=== PATIENT | female | born 1965 | race African-American/Black ===

== ENCOUNTER 2019-07-30 06:14 | Day surgery (SDC) | payer BC, OTHER ==
[2019-07-28 16:55] VITALS: BMI 23.6
[2019-07-30] MEDS ORDERED: MIDAZOLAM HCL 2 MG/2 ML SINGLE DOSE VIAL ONE ×3 (07:24→07:37)
[2019-07-30] MEDS ORDERED: ROPIVACAINE HCL 0.5% 30ML VIAL ONE (07:25)
[2019-07-30] MEDS ORDERED: SCOPOLAMINE HYDROBROMIDE 1 PATCH PATCH.TD72 ONE (07:35)
[2019-07-30] MEDS ORDERED: PROPOFOL 20 ML ONE ×4 (07:38)
[2019-07-30] MEDS ORDERED: ROCURONIUM BROMIDE 50 MG/5 ML SYRINGE ONE (08:12)
[2019-07-30] MEDS ORDERED: SUCCINYLCHOLINE CHLORIDE 200 MG/10 ML SYRINGE ONE (08:13)
[2019-07-30] MEDS ORDERED: ceFAZolin SODIUM 1 GM VIAL IVPB ONE (08:20)
--- NOTE | 2019-07-30 09:16 | OP ---
Operative Note - Note: Operative Date: 07/30/19 Pre-Operative Diagnosis: right shoulder impingement, ACJ OA Operation: right shoulder arthroscopy, subacromial decompression, distal clavicle excision, removal loose body (from AC joint) Post-Operative Diagnosis: Same as Pre-op Surgeon: Satnam Pavon Botany Teacher: Keyon Robertson Anesthesiologist/BARBER SHOP MANAGER: Cele Brown Anesthesia: General, Local Specimens Removed: shavings, loose body Estimated Blood Loss (mls): 25 Drains, Volume Out (mls): 0 Blood Volume Replaced (mls): 0 Fluid Volume Replaced (mls): 500 Operative Report Dictated: Yes
[2019-07-30] MEDS ORDERED: ONDANSETRON 4 MG/2 ML VIAL IVPUSH PRN (09:57)
[2019-07-30] MEDS ORDERED: oxyCODONE HCL 5 MG TABLET PO PRN ×2 (09:57)
[2019-07-30] MEDS ORDERED: LACTATED RINGERS SOLUTION 1,000 ML IV SCH (10:00)
[2019-07-30] MEDS ORDERED: EPHEDRINE SULFATE/0.9% NACL/PF 50 MG/10 ML SYRINGE NR ONE (10:40)
[2019-07-30 11:05] VITALS: TEMP 97.2
--- NOTE | 2019-07-30 11:07 | HP ---
[facility] - Chief Complaint Chief Complaint: right shoulder pain - Past Medical History Allergies/Adverse Reactions: Allergies Allergy/AdvReac Type Severity Reaction Status Date / Time ragweed pollen Allergy Verified 07/30/19 06:50 ...LMP: 05/22/19 - Current Medications Current Medications: Home Medications Medication Instructions Recorded Nitrofurantoin Macrocrystal 100 mg PO DAILY 07/28/19 [Nitrofurantoin] Satellite Physical Exam - Physical Examination Vital Signs: Vital Signs Period Temp Pulse Resp BP Sys/Watson Pulse Ox Last 24 Hr 97.2 F-97.8 F 63-86 16-19 107-121/76-88 96-100 General Appearance: Well Nourished, Well Developed, Alert & Oriented x3 ENT: Clear Lung: Normal air movement Heart: Regular rate & rhythm Extremities: Other (right shoulder- + ttp, dec rom, + neer, + mann, nvi) Neurological: Intact, Alert, Oriented Satellite Impression/Plan - Impression/Plan Impression: right shoulder impingement Operative Procedure: right shoulder arthroscopy with SAD Date to be Performed: 07/30/19
[2019-07-30 13:26] VITALS: BP 113/76; PULSE 74
--- NOTE | 2019-07-30 23:33 | OP ---
DATE OF OPERATION: 07/30/2019 PREOPERATIVE DIAGNOSIS: Right shoulder impingement syndrome and acromioclavicular joint arthritis. POSTOPERATIVE DIAGNOSIS: Right shoulder impingement syndrome and acromioclavicular joint arthritis. Plus loose body in acromioclavicular joint, likely calcified meniscus. PROCEDURE: Right shoulder arthroscopy, subacromial decompression, distal clavicle excision, and removal of loose body (from acromioclavicular joint). ATTENDING SURGEON: Satnam Pavon M.D. COMMUNITY RECREATION PROGRAMMER: Daniel Galeana M.D., BARN MANAGER: GABE Hills ANESTHESIA: Right interscalene block with LMA anesthesia. DRAINS: None. COMPLICATIONS: None. SPECIMENS: Shavings of loose body right shoulder. BLOOD LOSS: 45 mL. BLOOD GIVEN: None. FLUID REPLACEMENT: 500 mL Plasmalyte. INDICATION: This patient is 54-year-old female with the preoperative diagnosis of right shoulder pain, subacromial impingement and ischial arthritis. After understanding the potential risks, complications, alternatives, benefits to surgery versus nonsurgical treatment, the patient elected to undergo this procedure. The patient was brought to the operating room. DESCRIPTION OF PROCEDURE; The patient was brought to the operating room, peripheral IV placed, IV sedation given, 2 g of IV Ancef was given. A right interscalene block was performed. LMA anesthesia was induced. She was placed into the beach chair position with ample padding throughout. The right upper extremity was prepped and draped in sterile fashion. The bony landmarks are marked out with a marking pen. The posterior portal was established with a number 15 scalpel blade. The arthroscope was introduced into the glenohumeral joint, and a diagnostic glenohumeral arthroscopy was performed. Patient had no arthritis of the humeral head or the glenoid. The labrum and the biceps anchor was a little frayed, looked like a degenerative type tear. There was no herminio acute tear. The undersurface of the rotator cuff looked pristine. There was no abnormality or partial tear. The area was copiously irrigated and washed out. Next our attention turned to the subacromial space. There was a lot of inflammatory bursitis. Using a spinal needle under direct visualization, a lateral portal was found. cannula was introduced into the subacromial space, and extensive debridement/soft tissue bursectomy was performed with the ArthroCare wand. This revealed a very large subacromial spur which was also quite sharp. A moderate sized distal subclavicular spur and what appeared to be a bony loose body that was somewhat mobile and looked to be a calcified meniscus in the AC joint. Using combination of the 5.5 mm oval bur and a straight shaver, I did a bony subacromial decompression taking down the spur off the distal clavicle via acromion, and then I had access to the AC joint, where I was able to grab the loose body and pull it out in its entirety. I looked at it, and it did look more like a calcified meniscus. The bur was put into reverse to fine tune the decompression, and then the shave was introduced to fine tune it further and remove all bony debris. The top surface of the rotator cuff was directly visualized in all planes. There was no point of impingement, and there was no top surface rotator cuff tear. The area was copiously irrigated and washed out. All instrumentation removed. Final photographs taken. The excess saline removed. Arthroscopy portal was closed with 3-0 nylon sutures. The area was then washed and dried, covered with 2 small Aquacel dressing. Total operative time was about 30 minutes. There were no complications during the case. The patient tolerated the procedure quite well and was brought to the ambulatory recovery room in stable condition. DANIEL GALEANA M.D. [id number]
--- NOTE | 2019-07-31 16:37 | PATH ---
Surgical Pathology Report Patient Name: ELVIS MIRANDA [facility]. Rec. #: [id number] /Age/Gender: 1965 (Age: 54) / F Account: [id number] Location: [facility] SUR[facility] Taken: 07/30/2019 Received: 07/30/2019 Reported: 07/31/2019 Physicians: Keyon Robertson M.D. Specimen(s) Received RIGHT SHOULDER SHAVINGS Clinical History Right shoulder tear Final Diagnosis RIGHT SHOULDER SHAVINGS: FRAGMENTS OF BONE AND FIBROADIPOSE TISSUE WITH FOCAL DEGENERATIVE CHANGE. SEPARATE SKELETAL MUSCLE FRAGMENTS WITH NO SIGNIFICANT PATHOLOGIC CHANGE. Electronically Signed Henrietta Belcher M.D. Gross Description Received in formalin, labeled "right shoulder shavings," is a 4.7 x 3.5 x 0.4 cm. aggregate of osborn-yellow soft tissue fragments. A customer success representative portion is submitted in one cassette. /07/30/201907/30/2019
== END 2019-07-30 13:28 | disposition home or self-care (01) ==
LOC: JASU-SURG 06:14
PROVIDERS: ATTEND Orthopaedic Surgery
PROC: 0PB94ZZ Excision of Right Clavicle, Percutaneous Endoscopic Approach (ICD-10-PCS; 2019-07-30)
PROC: 0RCJ4ZZ Extirpation of Matter from Right Shoulder Joint, Percutaneous Endoscopic Approach (ICD-10-PCS; 2019-07-30)
PROC: 0RNJ4ZZ Release Right Shoulder Joint, Percutaneous Endoscopic Approach (ICD-10-PCS; principal; 2019-07-30 08:00)
DX: M25.811 Other specified joint disorders, right shoulder (principal); M19.011 Primary osteoarthritis, right shoulder; M24.011 Loose body in right shoulder
CPT/HCPCS: 84703; 94760